=== PATIENT | female | born 1930 | race Caucasian/White ===

== ENCOUNTER 2017-05-04 18:16 | Inpatient (IN) | payer MEDICARE, MEDICAID ==
[2017-05-04 19:08] LABS: MEAN CORPUSCULAR HEMOGLOBIN 19.8 pg (27.0-31.0); MEAN CORPUSCULAR HGB CONC 31.1 pg (28.0-36.0); NEUTROPHILE ABSOLUTE 1.4 Th/cmm (1.8-8.0); PLATELET COUNT 193 Th/cmm (150-400); RED CELL DISTRIBUTION WIDTH 21.4 % (11.5-20.0)
[2017-05-04 19:15] LABS: INR 1.04 (0.5-1.4); PROTHROMBIN TIME (TEST) 10.8 SECONDS (9.5-11.5)
[2017-05-04 19:17] LABS: CHOLESTEROL 95 mg/dL (<200); TRIGLYCERIDES 90 mg/dL (<150)
[2017-05-04 19:19] LABS: ALB/GLOB RATIO 1.1 (1.0-1.8); ALKALINE PHOSPHATASE 106 U/L (34-104); ANION GAP 6.2 (7.0-16.0); BILIRUBIN,TOTAL 0.3 mg/dL (0.3-1.0); BUN - UREA NITROGEN 37 mg/dL (7-25); BUN/CREATININE RATIO 46.3; CALCIUM SERUM 10.5 mg/dL (8.6-10.3); CHLORIDE 107 mEq/L (98-107); CREATININE - SERUM 0.8 mg/dL (0.6-1.2); GLUCOSE 149 mg/dL (70-105); POTASSIUM SERUM 4.2 mEq/L (3.5-5.1); SGOT 18 U/L (13-39); SGPT/ALT 14 U/L (7-52); SODIUM SERUM 133 mEq/L (136-145)
[2017-05-04 19:21] LABS: WHITE BLOOD COUNT 2.8 Th/cmm (4.8-10.8)
[2017-05-04 19:22] LABS: HEMATOCRIT 16.9 % (35.0-45.0); HEMOGLOBIN 5.3 gm/dL (11.7-16.1)
[2017-05-04 19:29] LABS: MEAN CELL VOLUME 63.7 fl (81-100); RED BLOOD COUNT 2.65 Mil/cmm (3.80-5.20)
--- NOTE | 2017-05-04 19:45 | ED Physician Chart ---
Chief Complaint/HPI - Patient Information Date Seen:: 05/04/17 Time Seen:: 18:30 Chief Complaint:: ABNORMAL LABS History of Present Illness:: THIS IS AN 86 YO FEMALE WHO WAS SENT HERE FOR AN EVALUATION AND TREATMENT FOR A LOW BLOOD COUNT. SHE IS CHRONICALLY ILL WITH COPD,ANEMIA,HYPERTENSION,THYROID DISEASE,GERD CAD, DIABETES MELLITUS AND ANXIETY DISORDER. Allergies:: Allergies Allergy/AdvReac Type Severity Reaction Status Date / Time No Known Allergies Allergy Verified 05/04/17 18:25 Vitals:: Vital Signs - 8 hr 05/04/17 18:25 Temp 98.1 F HR 77 RR 16 BP 126/52 O2 Sat % 98 Historian:: Medical Records Review:: Nurse's Note Reviewed, Transfer documents Reviewed Review of Systems - Review of Systems General/Constitutional: No fever, No chills, No weight loss, No weakness, No diaphoresis, No edema, No loss of appetite, Other (THIS PATIENT IS UNABLE TO GIVE A REVIEW OF SYSTEMS.) Skin: No skin lesions, No rash, No bruising Head: No headache, No light-headedness Eyes: No loss of vision, No pain, No diplopia ENT: No earache, No nasal drainage, No sore throat, No tinnitus Neck: No neck pain, No swelling, No thyromegaly, No stiffness, No mass noted Cardio Vascular: No chest pain, No palpitations, No PND, No orthopnea, No edema Pulmonary: No SOB, No cough, No sputum, No wheezing GI: No nausea, No vomiting, No diarrhea, No pain, No melena, No hematochezia, No constipation, No hematemesis G/U: No dysuria, No frequency, No hematuria Musculoskeletal: No bone or joint pain, No back pain, No muscle pain Endocrine: No polyuria, No polydipsia Psychiatric: No prior psych history, No depression, No anxiety, No suicidal ideation Hematopoietic: No bruising, No lymphadenopathy Allergic/Immuno: No urticaria, No angioedema Neurological: No syncope, No focal symptoms, No weakness, No paresthesia, No headache, No seizure, No dizziness, No confusion, No vertigo Past Medical History - Past Medical History Obtainable: Yes Past Medical History: HTN, DM, CAD, Dyslipidemia, Thyroid disorder, Dementia Social History: Non Smoker, No Alcohol, No Drug Use, Care Facility Surgical History: None Physical Exam - Physical Examination General/Constitutional: Awake, Well-developed, well-nourished, Alert, No distress, GCS 15, Non-toxic appearing, Ambulatory Other Gen/Cons comments:: PALE AND WEAK Head: Atraumatic Eyes: Lids, conjuctiva normal, PERRL, EOMI Skin: Nl inspection, No rash, No skin lesions, No ecchymosis, Well hydrated, No lymphadenopathy ENMT: External ears, nose nl, Nasal exam nl, Lips, teeth, gums nl Neck: Nontender, Full ROM w/o pain, No JVD, No nuchal rigidity, No bruit, No mass, No stridor Respiratory: Nl effort/Exclusion, Clear to Auscultation, No Wheeze/Rhonchi/Rales Cardio Vascular: RRR, No murmur, gallop, rubs, NL S1 S2 GI: No tenderness/rebounding/guarding, No organomegaly, No hernia, Normal BS's, Nondistended, No mass/bruits, No McBurney tenderness : No CVA tenderness Extremities: Full ROM, normal strength in all extremities, No edema, Normal digits & nails Other Extremities comments:: BOTH KNEES ARE TENDER AND PAINFUL ON MOVEMENT. Neuro/Psych: Alert/oriented, DTR's symmetric, Normal sensory exam, Normal motor strength, Judgement/insight normal, Mood normal, Normal gait, No focal deficits Misc: normal gait, Normal back, No paraspinal tenderness Labs/Radiology/EKG Results - Lab Results Results: Laboratory Tests 05/04/17 05/04/17 05/04/17 18:54 18:54 18:54 WBC 2.8 L RBC 2.65 L Hgb 5.3 L* Hct 16.9 L* MCV 63.7 L MCH 19.8 L MCHC Differential 31.1 RDW 21.4 H Plt Count 193 MPV 7.0 PT 10.8 INR 1.04 PTT (Actin FS) 21.2 L Sodium Potassium Chloride Carbon Dioxide Anion Gap BUN Creatinine Est GFR ( Amer) Est GFR (Non-Af Amer) BUN/Creatinine Ratio Glucose Whole Bld Lactic Acid Calcium Total Bilirubin AST ALT Alkaline Phosphatase Troponin I Total Protein Albumin Globulin Albumin/Globulin Ratio Triglycerides 90 Cholesterol 95 LDL Cholesterol Direct 43 L HDL Cholesterol 36 05/04/17 05/04/17 05/04/17 18:54 18:54 18:54 WBC RBC Hgb Hct MCV MCH MCHC Differential RDW Plt Count MPV PT INR PTT (Actin FS) Sodium 133 L Potassium 4.2 Chloride 107 Carbon Dioxide 24.0 Anion Gap 6.2 L BUN 37 H Creatinine 0.8 Est GFR ( Amer) TNP Est GFR (Non-Af Amer) TNP BUN/Creatinine Ratio 46.3 Glucose 149 H Whole Bld Lactic Acid 1.18 Calcium 10.5 H Total Bilirubin 0.3 AST 18 ALT 14 Alkaline Phosphatase 106 H Troponin I 0.03 Total Protein 6.6 Albumin 3.4 L Globulin 3.2 Albumin/Globulin Ratio 1.1 Triglycerides Cholesterol LDL Cholesterol Direct HDL Cholesterol Abnormal Lab Results 05/04/17 05/04/17 05/04/17 18:54 18:54 18:54 WBC 2.8 L RBC 2.65 L Hgb 5.3 L* Hct 16.9 L* MCV 63.7 L MCH 19.8 L MCHC Differential 31.1 RDW 21.4 H Plt Count 193 MPV 7.0 Neutrophils (Manual) 54 Lymphocytes 26 Monocytes 14 H Eosinophils 4 Basophils 2 Hypochromia 1+ Platelet Estimate ADEQUATE Polychromasia 2+ Anisocytosis 1+ Microcytosis 3+ RBC Morph Micro Appear ABNORMAL PT 10.8 INR 1.04 PTT (Actin FS) 21.2 L Sodium Potassium Chloride Carbon Dioxide Anion Gap BUN Creatinine Est GFR ( Amer) Est GFR (Non-Af Amer) BUN/Creatinine Ratio Glucose Whole Bld Lactic Acid Calcium Total Bilirubin AST ALT Alkaline Phosphatase Troponin I Total Protein Albumin Globulin Albumin/Globulin Ratio Triglycerides 90 Cholesterol 95 LDL Cholesterol Direct 43 L HDL Cholesterol 36 TSH Urine Source Urine Color Urine Clarity Urine pH Ur Specific [place] Urine Protein Urine Glucose (UA) Urine Ketones Urine Blood Urine Nitrate Urine Bilirubin Urine Urobilinogen Ur Leukocyte Esterase Urine RBC Urine WBC Ur Epithelial Cells Urine Bacteria Blood Type Antibody Screen 05/04/17 05/04/17 05/04/17 18:54 18:54 18:54 WBC RBC Hgb Hct MCV MCH MCHC Differential RDW Plt Count MPV Neutrophils (Manual) Lymphocytes Monocytes Eosinophils Basophils Hypochromia Platelet Estimate Polychromasia Anisocytosis Microcytosis RBC Morph Micro Appear PT INR PTT (Actin FS) Sodium 133 L Potassium 4.2 Chloride 107 Carbon Dioxide 24.0 Anion Gap 6.2 L BUN 37 H Creatinine 0.8 Est GFR ( Amer) TNP Est GFR (Non-Af Amer) TNP BUN/Creatinine Ratio 46.3 Glucose 149 H Whole Bld Lactic Acid Calcium 10.5 H Total Bilirubin 0.3 AST 18 ALT 14 Alkaline Phosphatase 106 H Troponin I 0.03 Total Protein 6.6 Albumin 3.4 L Globulin 3.2 Albumin/Globulin Ratio 1.1 Triglycerides Cholesterol LDL Cholesterol Direct HDL Cholesterol TSH 7.76 H Urine Source Urine Color Urine Clarity Urine pH Ur Specific [place] Urine Protein Urine Glucose (UA) Urine Ketones Urine Blood Urine Nitrate Urine Bilirubin Urine Urobilinogen Ur Leukocyte Esterase Urine RBC Urine WBC Ur Epithelial Cells Urine Bacteria Blood Type Antibody Screen 05/04/17 05/04/17 05/04/17 18:54 19:35 20:50 WBC RBC Hgb Hct MCV MCH MCHC Differential RDW Plt Count MPV Neutrophils (Manual) Lymphocytes Monocytes Eosinophils Basophils Hypochromia Platelet Estimate Polychromasia Anisocytosis Microcytosis RBC Morph Micro Appear PT INR PTT (Actin FS) Sodium Potassium Chloride Carbon Dioxide Anion Gap BUN Creatinine Est GFR ( Amer) Est GFR (Non-Af Amer) BUN/Creatinine Ratio Glucose Whole Bld Lactic Acid 1.18 Calcium Total Bilirubin AST ALT Alkaline Phosphatase Troponin I Total Protein Albumin Globulin Albumin/Globulin Ratio Triglycerides Cholesterol LDL Cholesterol Direct HDL Cholesterol TSH Urine Source CLEAN C Urine Color YELLOW Urine Clarity CLEAR Urine pH 6.0 Ur Specific [place] 1.020 Urine Protein TRACE Urine Glucose (UA) NEGATIVE Urine Ketones NEGATIVE Urine Blood NEGATIVE Urine Nitrate NEGATIVE Urine Bilirubin NEGATIVE Urine Urobilinogen 1.0 Ur Leukocyte Esterase NEGATIVE Urine RBC NONE SEEN Urine WBC 0-2 Ur Epithelial Cells RARE Urine Bacteria OCCASIONAL Blood Type A POSITIVE Antibody Screen NEGATIVE - EKG Interpretations EKG Time:: 20:27 Rate & Rhythm: RATE=77 SINUS [place]: LEFT AXIS Assessment - Assessment General Assessment: SEVERE ANEMIA ED Septic Shock - . Is Septic Shock (SBP<90, OR Lactate>4 mmol\L) present?: No - <6hrs of presentation: Vital Signs: Vital Signs - 8 hr 05/04/17 18:25 Temp 98.1 F HR 77 RR 16 BP 126/52 O2 Sat % 98 Reassessment (Disposition) - Reassessment Reassessment Condition:: Unchanged - Diagnosis Diagnosis:: SEVERE ANEMIA - Patient Disposition Discharge/Transfer:: Acute Care w/in this hosp Admitted to:: Telemetry Admitting Medical Physician:: Jaden Keen Condition at Disposition:: Critical ED Discharge Plan - Patient Disposition Admit/Discharge/Transfer: Acute Care w/in this hosp Condition at Disposition: Critical
[2017-05-04 19:50] LABS: BASOPHIL 2 % (0-3); EOSINOPHIL 4 % (0-5); NEUTROPHILS 54 % (40-80); TOTAL CELLS COUNTED 100
[2017-05-04 19:51] LABS: ANISOCYTOSIS 1+; HYPOCHROMIA 1+; MICROCYTOSIS 3+; PLATELET ESTIMATE ADEQUATE (NORMAL); POLYCHROMASIA 2+
[2017-05-04] MEDS ORDERED: Sodium Chloride 0.9% 1,000 ML IV ONE (20:02)
[2017-05-04 21:06] LABS: URINE BILIRUBIN NEGATIVE (NEGATIVE); URINE BLOOD NEGATIVE (NEGATIVE); URINE GLUCOSE (UA) NEGATIVE (NEGATIVE); URINE KETONE NEGATIVE (NEGATIVE); URINE PROTEIN TRACE mg/dL (NEGATIVE)
[2017-05-04 21:20] LABS: URINE COLOR YELLOW
[2017-05-04 21:22] LABS: URINE BACTERIA OCCASIONAL /hpf (NONE SEEN); URINE EPITHELIAL CELLS RARE /lpf (FEW); URINE RBC NONE SEEN /hpf (0-5); URINE WBC 0-2 /hpf (0-5)
[2017-05-04] MEDS ORDERED: D5-0.45NS 1,000 ML IV SCH (23:05)
[2017-05-05 06:35] LABS: MEAN CORPUSCULAR HEMOGLOBIN 21.8 pg (27.0-31.0); MEAN CORPUSCULAR HGB CONC 31.7 pg (28.0-36.0); MEAN PLATELET VOLUME 7.2 fl; NEUTROPHILE ABSOLUTE 1.6 Th/cmm (1.8-8.0); PLATELET COUNT 199 Th/cmm (150-400); RED BLOOD COUNT 3.41 Mil/cmm (3.80-5.20); RED CELL DISTRIBUTION WIDTH 23.7 % (11.5-20.0)
[2017-05-05] MEDS: Levothyroxine 0.125 Mg Tab PO SCH (06:39)
[2017-05-05 07:02] LABS: WHITE BLOOD COUNT 3.1 Th/cmm (4.8-10.8)
[2017-05-05 07:03] LABS: HEMOGLOBIN 7.4 gm/dL (11.7-16.1)
[2017-05-05 07:05] LABS: HEMATOCRIT 23.4 % (35.0-45.0)
[2017-05-05 07:39] LABS: HEMOGLOBIN 8.3 gm/dL (11.7-16.1); MEAN CORPUSCULAR HEMOGLOBIN 21.9 pg (27.0-31.0)
[2017-05-05 07:40] LABS: % BASOPHILS 0.8 % (0.0-2.0); % EOSINOPHILS 3.6 % (0.0-5.0); % LYMPHOCYTES 34.4 % (20.0-50.0); % NEUTROPHILS 47.2 % (40.0-80.0); HEMATOCRIT 26.1 % (35.0-45.0); MEAN CELL VOLUME 69.3 fl (81-100); MEAN CORPUSCULAR HGB CONC 31.7 pg (28.0-36.0); MEAN PLATELET VOLUME 7.1 fl; NEUTROPHILE ABSOLUTE 1.8 Th/cmm (1.8-8.0); PLATELET COUNT 220 Th/cmm (150-400); RED BLOOD COUNT 3.76 Mil/cmm (3.80-5.20); RED CELL DISTRIBUTION WIDTH 23.6 % (11.5-20.0); WHITE BLOOD COUNT 3.7 Th/cmm (4.8-10.8)
[2017-05-05] MEDS: D5-0.45NS 1,000 ML IV SCH (07:55)
[2017-05-05] MEDS: Pantoprazole 40 mg EC Tab PO SCH (09:11)
[2017-05-05] MEDS: Ferrous Sulfate 325 MG TAB PO SCH ×3 (09:11→20:17)
--- NOTE | 2017-05-05 09:23 | Diagnostic Imaging Report ---
Portable chest x-ray Time: 2324 History: Shortness of breath Allowing for portable technique the heart size is normal. No focal pulmonary parenchymal processes. No hilar or mediastinal abnormalities. Aortic arch calcified. Degenerative changes shoulder joints appreciated. Impression: No acute abnormalities.
[2017-05-05 10:38] LABS: MEAN CELL VOLUME 68.7 fl (81-100)
[2017-05-05 12:06] LABS: HEMATOCRIT 26.4 % (35.0-45.0); HEMOGLOBIN 8.4 gm/dL (11.7-16.1); MEAN CELL VOLUME 69.2 fl (81-100); MEAN CORPUSCULAR HEMOGLOBIN 22.1 pg (27.0-31.0); MEAN CORPUSCULAR HGB CONC 31.8 pg (28.0-36.0); MEAN PLATELET VOLUME 6.8 fl; PLATELET COUNT 208 Th/cmm (150-400); RED BLOOD COUNT 3.81 Mil/cmm (3.80-5.20); RED CELL DISTRIBUTION WIDTH 23.9 % (11.5-20.0); WHITE BLOOD COUNT 4.1 Th/cmm (4.8-10.8)
[2017-05-05 12:29] LABS: EOSINOPHIL 3 % (0-5); NEUTROPHILS 62 % (40-80); TOTAL CELLS COUNTED 100
[2017-05-05 12:30] LABS: ANISOCYTOSIS 2+; MICROCYTOSIS 3+; PLATELET ESTIMATE ADEQUATE (NORMAL); POLYCHROMASIA 1+
--- NOTE | 2017-05-05 16:04 | History & Physical ---
ADMIT DATE: 05/05/2017 CHIEF COMPLAINT: Anemia. HISTORY OF PRESENT ILLNESS: This is an 86-year-old female with past medical history significant for chronic anemia and psychiatric disorder, presents from long-term after being noted to have worsening anemia. The patient was brought to the Emergency Room, found to have a hemoglobin of 5.3. The patient was admitted and had transfusion of 2 units of packed red blood cells with good result. The patient is seen in hospital bed. She is awake and alert. Very poor historian given her underlying mental disorder, appears in no acute distress. PAST MEDICAL HISTORY: The patient has history of chronic anemia, pancytopenia, psychosis, hypothyroidism, gastroesophageal reflux disorder, chronic kidney disease, diabetes, hypertension, COPD. MEDICATIONS: As per reconciliation. ALLERGIES: No known drug allergies. SOCIAL HISTORY: No known tobacco, alcohol or illicit drug use. The patient is a resident of [facility]. FAMILY HISTORY: Noncontributory. REVIEW OF SYSTEMS: IMMUNOLOGIC: No recurrent infection. CARDIOVASCULAR: No heart disease. The patient does have hypertension. GASTROINTESTINAL: No nausea, vomiting, diarrhea. ENDOCRINE: The patient is apparently diabetic and has hypothyroidism. HEMATOLOGIC: No bleeding or clotting disorder. The patient has chronic anemia. NEUROLOGIC: No seizure or stroke. The patient has poor mental ____ secondary to possible psychiatric disorder versus dementia. PHYSICAL EXAMINATION: GENERAL: The patient is awake, alert, in no acute distress. VITAL SIGNS: Temperature 97.3, pulse 64, respiration 18, blood pressure 142/59. HEENT: Pupils are equally round. Anicteric sclerae. NECK: Supple, no JVD, mass or bruit. LUNGS: Clear to auscultation. HEART: S1, S2, regular rate and rhythm. ABDOMEN: Soft and nontender. Positive bowel sounds. EXTREMITIES: No cyanosis, clubbing or edema. NEUROLOGIC: Cranial nerves 2-12 intact and ____ have any motor deficit, although she is generally weak and has poor coordination and not cooperative. LABORATORY DATA: On admission, hemoglobin is 5.3, hematocrit is 16.9, WBC is 2.8 with platelets of 193. Albumin is 3.4. BUN is 37, creatinine is 0.8. Sodium is 133. IMPRESSION: 1. Acute on chronic anemia. 2. Possible dementia. 3. History of psychiatric disorder. 4. Hypothyroidism. 5. Hyponatremia. 6. Gastroesophageal reflux disorder. 7. Mild malnutrition. PLAN: Admit to telemetry. The patient has been transfused packed red blood cells. I will continue to monitor the patient's hemoglobin for further need for transfusion. The patient will receive GI consult as well as Hematology consult. I spoke with Dr. Araya, who assessed her in the long-term. JOB# [id number]
[2017-05-05 20:04] LABS: MEAN CORPUSCULAR HEMOGLOBIN 21.7 pg (27.0-31.0); MEAN CORPUSCULAR HGB CONC 31.2 pg (28.0-36.0); MEAN PLATELET VOLUME 6.9 fl; NEUTROPHILE ABSOLUTE 2.5 Th/cmm (1.8-8.0); PLATELET COUNT 216 Th/cmm (150-400); RED CELL DISTRIBUTION WIDTH 24.2 % (11.5-20.0); WHITE BLOOD COUNT 4.3 Th/cmm (4.8-10.8)
[2017-05-05 20:19] LABS: HEMOGLOBIN 7.8 gm/dL (11.7-16.1); MEAN CELL VOLUME 69.6 fl (81-100)
[2017-05-05 20:31] LABS: ANISOCYTOSIS 2+; EOSINOPHIL 4 % (0-5); MICROCYTOSIS 3+; NEUTROPHILS 62 % (40-80); POLYCHROMASIA 1+; TOTAL CELLS COUNTED 100
[2017-05-05 20:32] LABS: PLATELET ESTIMATE ADEQUATE (NORMAL)
--- NOTE | 2017-05-05 23:25 | Admit Criteria Form ---
Admit Criteria Forms - Admit Criteria Diagnosis: ANEMIA, IRON DEFICIENCY OR UNSPECIFIED Clinical Indications for Inpatient Care (Place 'X' for any and all applicable criteria): Admission is indicated for ANY ONE of the following(1)(2)(3)(4)(5)(6)(7): [X] I. Inpatient admission required rather than observation care (Also use Anemia, Iron Deficiency or Unspecified: Observation Care guideline as appropriate) because of ANY ONE of the following: [] a) Hemodynamic instability that is severe or persistent [] b) Active bleeding that cannot be rapidly controlled [] c) CVS symptoms (i.e., dyspnea, chest pain, heart failure) that are severe or persistent [] d) Neurologic symptoms (i.e., cognitive impairment, recurrent syncope or near syncope) that are severe or persistent [] e) Cardiac arrhythmias of immediate concern [] f) Acute peripheral ischemia (e.g., pulseless, cool, mottled, or cyanotic extremity) [] g) High-risk low platelet count [] h) Acute renal failure [] i) Ongoing transfusion for blood loss (greater than 2 units) [] j) IV fluid to replace significant ongoing (eg, >24 hours) losses (> 3 L/m2 per day) [] k) Pulmonary artery catheter monitoring [] l) Supplemental oxygen or respiratory treatments for over 24 hours that are performable only in acute inpatient setting [] m) Immediate inpatient surgery [X] n) Other condition, treatment or monitoring requiring inpatient admission [] II Active massive hemorrhage [] III. Active hemolysis with rapidly progressive anemia [A](6) Extended stay beyond goal length of stay may be needed for (17)(18) []a) Diagnosed cause of anemia requiring longer hospitalization (eg, active GI bleeding, immune hemolysis requiring electrophoresis, complications of malignancy requiring acute care []b) Continued emergent anemia indicators (23) []c) Transfusion reactions []d) Associated leukopenia or thrombocytopenia needing inpatient care []e) Active comorbidities (eg, renal failure, heart failure) The original [employer] content created by [employer] has been revised. The portions of the content which have been revised are identified through the use of italic text or in bold. [employer] has neither reviewed nor approved the modified material. All other unmodified content is copyright [employer]. Please see references footnoted in the original [facility] edition 2016 Admit Criteria Met?: Yes
[2017-05-06] MEDS: Levothyroxine 0.125 Mg Tab PO SCH (06:38)
[2017-05-06 07:54] LABS: % EOSINOPHILS 3.5 % (0.0-5.0); % MONOCYTES 14.6 % (2.0-10.0); % NEUTROPHILS 55.9 % (40.0-80.0); MEAN CELL VOLUME 73.3 fl (81-100); MEAN CORPUSCULAR HGB CONC 32.8 pg (28.0-36.0); MEAN PLATELET VOLUME 7.3 fl; NEUTROPHILE ABSOLUTE 2.3 Th/cmm (1.8-8.0); PLATELET COUNT 190 Th/cmm (150-400); RED BLOOD COUNT 4.37 Mil/cmm (3.80-5.20); RED CELL DISTRIBUTION WIDTH 24.9 % (11.5-20.0)
[2017-05-06 08:00] LABS: HEMOGLOBIN 10.5 gm/dL (11.7-16.1)
[2017-05-06 08:14] LABS: ALKALINE PHOSPHATASE 108 U/L (34-104); ANION GAP 5.6 (7.0-16.0); BILIRUBIN,TOTAL 0.5 mg/dL (0.3-1.0); BUN - UREA NITROGEN 20 mg/dL (7-25); BUN/CREATININE RATIO 33.3; CALCIUM SERUM 10.5 mg/dL (8.6-10.3); CARBON DIOXIDE 26.5 mEq/L (21.0-31.0); CHLORIDE 107 mEq/L (98-107); CREATININE - SERUM 0.6 mg/dL (0.6-1.2); GLUCOSE 107 mg/dL (70-105); POTASSIUM SERUM 4.1 mEq/L (3.5-5.1); SGOT 20 U/L (13-39); SGPT/ALT 13 U/L (7-52); SODIUM SERUM 135 mEq/L (136-145)
[2017-05-06] MEDS: Ferrous Sulfate 325 MG TAB PO SCH ×3 (08:18→21:46)
[2017-05-06] MEDS: Pantoprazole 40 mg EC Tab PO SCH (08:18)
[2017-05-06] MEDS ORDERED: Magnesium Hydroxide (MOM) 30 mL UDC PO PRN (09:02)
[2017-05-06] MEDS ORDERED: Magnesium Citrate 1.75 GM/300 mL Bottle PO ONE (09:52)
--- NOTE | 2017-05-06 11:35 | Consultation ---
DATE OF CONSULTATION: 05/06/2017 TYPE OF CONSULTATION: GASTROENTEROLOGY REQUESTING PHYSICIAN: Dr. Jaden Keen. REASON FOR CONSULTATION: Anemia. HISTORY OF PRESENT ILLNESS: This is an 86-year-old female transferred from assisted for severe anemia requiring blood transfusions. Her hemoglobin on admission was 5.3. She received 4 units of packed RBCs. There is no overt GI bleeding. The patient is a poor historian. She cannot recall previous endoscopy or colonoscopy. She denies abdominal pain, nausea, vomiting, diarrhea or constipation. PAST MEDICAL HISTORY: Notable for psychosis, dementia, hypothyroidism, GERD, chronic kidney disease, diabetes mellitus, hypertension, and COPD. ALLERGIES: No known drug allergies. SOCIAL HISTORY: Resident of [facility]. No known tobacco, alcohol or drugs. FAMILY HISTORY: Noncontributory. REVIEW OF SYSTEMS: A comprehensive 12-point review of system was conducted and is only present for those signs and symptoms present in the history of present illness. MEDICATIONS: Here are iron, folic acid, Synthroid, milk of magnesia, Protonix and Carafate. PHYSICAL EXAMINATION: VITAL SIGNS: Temperature of 97.7, blood pressure is 133/55, pulse of 81, respirations 18, O2 sat is 99%. GENERAL: The patient is well-developed elderly female in no acute distress. HEENT: Sclerae nonicteric. Oropharynx is clear. CARDIOVASCULAR: Regular rate and rhythm. LUNGS: Clear to auscultation bilaterally. ABDOMEN: Soft, nontender, nondistended. EXTREMITIES: No clubbing, cyanosis or edema. RECTAL: Deferred. LABORATORY DATA AND IMAGING: WBC is 3.7, hemoglobin 8.3, MCV 69, platelet count 220. Sodium 135. Creatinine is 0.6, liver enzymes are normal except for alkaline phosphatase mildly elevated to 108. Urinalysis is negative. IMPRESSION: 1. Severe microcytic anemia requiring blood transfusion with no overt GI bleeding could be from slow GI blood loss from esophagitis, gastritis, peptic ulcer disease, occult neoplasm, angiodysplasia, hemorrhoids, etc. unclear whether the patient has had previous endoscopic workup. 2. Dementia and psychosis. 3. Leukopenia. 4. Hypothyroidism. 5. Gastroesophageal reflux disease. 6. Diabetes mellitus. 7. Hypertension. 8. Chronic obstructive pulmonary disease. RECOMMENDATIONS: 1. Check anemia labs. 2. Monitor hemoglobin, transfuse as necessary. 3. Consider upper endoscopy and colonoscopy, pending consent likely from her sister. 4. Workup can also be done as an outpatient, if so desired. Thank you, Dr. Jaden Keen for involving us in the care of your patient. If you have any further questions, please call us. JOB# [id number]
[2017-05-06] MEDS: D5-0.45NS 1,000 ML IV SCH (12:50)
[2017-05-06] MEDS ORDERED: Magnesium Hydroxide (MOM) 30 mL UDC PO SCH (17:00)
--- NOTE | 2017-05-06 17:17 | General Progress Note ---
Subjective - Review of Systems Subjective: resting comfortably poor historian Objective - Results Result Diagrams: 05/06/17 07:20 05/06/17 07:20 Recent Labs: Laboratory Last Values WBC 4.0 Th/cmm (4.8-10.8) L 05/06/17 07:20 RBC 4.37 Mil/cmm (3.80-5.20) 05/06/17 07:20 Hgb 10.5 gm/dL (11.7-16.1) L D 05/06/17 07:20 Hct 32.0 % (35.0-45.0) L D 05/06/17 07:20 MCV 73.3 fl (81-100) L 05/06/17 07:20 MCH 24.0 pg (27.0-31.0) L 05/06/17 07:20 MCHC Differential 32.8 pg (28.0-36.0) 05/06/17 07:20 RDW 24.9 % (11.5-20.0) H 05/06/17 07:20 Plt Count 190 Th/cmm (150-400) 05/06/17 07:20 MPV 7.3 fl 05/06/17 07:20 Neutrophils % 55.9 % (40.0-80.0) 05/06/17 07:20 Lymphocytes % 26.0 % (20.0-50.0) 05/06/17 07:20 Monocytes % 14.6 % (2.0-10.0) H 05/06/17 07:20 Eosinophils % 3.5 % (0.0-5.0) 05/06/17 07:20 Basophils % 0.0 % (0.0-2.0) 05/06/17 07:20 Neutrophils (Manual) 62 % (40-80) 05/05/17 19:57 Lymphocytes 25 % (20-50) 05/05/17 19:57 Monocytes 9 % (2-10) 05/05/17 19:57 Eosinophils 4 % (0-5) 05/05/17 19:57 Basophils 2 % (0-3) 05/04/17 18:54 Hypochromia 1+ 05/04/17 18:54 Platelet Estimate ADEQUATE (NORMAL) 05/05/17 19:57 Polychromasia 1+ 05/05/17 19:57 Anisocytosis 2+ 05/05/17 19:57 Microcytosis 3+ 05/05/17 19:57 RBC Morph Micro Appear ABNORMAL (NORMAL) 05/05/17 19:57 PT 10.8 SECONDS (9.5-11.5) 05/04/17 18:54 INR 1.04 (0.5-1.4) 05/04/17 18:54 PTT (Actin FS) 21.2 SECONDS (26.0-38.0) L 05/04/17 18:54 Sodium 135 mEq/L (136-145) L 05/06/17 07:20 Potassium 4.1 mEq/L (3.5-5.1) 05/06/17 07:20 Chloride 107 mEq/L (98-107) 05/06/17 07:20 Carbon Dioxide 26.5 mEq/L (21.0-31.0) 05/06/17 07:20 Anion Gap 5.6 (7.0-16.0) L 05/06/17 07:20 BUN 20 mg/dL (7-25) 05/06/17 07:20 Creatinine 0.6 mg/dL (0.6-1.2) 05/06/17 07:20 Est GFR ( Amer) TNP 05/06/17 07:20 Est GFR (Non-Af Amer) TNP 05/06/17 07:20 BUN/Creatinine Ratio 33.3 05/06/17 07:20 Glucose 107 mg/dL (70-105) H 05/06/17 07:20 Whole Bld Lactic Acid 1.18 mmol/L (0.60-1.99) 05/04/17 18:54 Calcium 10.5 mg/dL (8.6-10.3) H 05/06/17 07:20 Total Bilirubin 0.5 mg/dL (0.3-1.0) 05/06/17 07:20 AST 20 U/L (13-39) 05/06/17 07:20 ALT 13 U/L (7-52) 05/06/17 07:20 Alkaline Phosphatase 108 U/L (34-104) H 05/06/17 07:20 Troponin I 0.03 ng/mL (0.01-0.05) 05/04/17 18:54 B-Natriuretic Peptide 36.5 pg/mL (5.0-100.0) 05/06/17 07:20 Total Protein 6.7 gm/dL (6.0-8.3) 05/06/17 07:20 Albumin 3.4 gm/dL (3.7-5.3) L 05/06/17 07:20 Globulin 3.3 gm/dL 05/06/17 07:20 Albumin/Globulin Ratio 1.0 (1.0-1.8) 05/06/17 07:20 Triglycerides 90 mg/dL (<150) 05/04/17 18:54 Cholesterol 95 mg/dL (<200) 05/04/17 18:54 LDL Cholesterol Direct 43 mg/dL (75-193) L 05/04/17 18:54 HDL Cholesterol 36 mg/dL (23-92) 05/04/17 18:54 TSH 7.76 uIU/ml (0.34-5.60) H 05/04/17 18:54 Urine Source CLEAN C 05/04/17 20:50 Urine Color YELLOW 05/04/17 20:50 Urine Clarity CLEAR (CLEAR) 05/04/17 20:50 Urine pH 6.0 (4.6 - 8.0) 05/04/17 20:50 Ur Specific [place] 1.020 (1.005-1.030) 05/04/17 20:50 Urine Protein TRACE mg/dL (NEGATIVE) 05/04/17 20:50 Urine Glucose (UA) NEGATIVE mg/dL (NEGATIVE) 05/04/17 20:50 Urine Ketones NEGATIVE mg/dL (NEGATIVE) 05/04/17 20:50 Urine Blood NEGATIVE (NEGATIVE) 05/04/17 20:50 Urine Nitrate NEGATIVE (NEGATIVE) 05/04/17 20:50 Urine Bilirubin NEGATIVE (NEGATIVE) 05/04/17 20:50 Urine Urobilinogen 1.0 E.U./dL (0.2 - 1.0) 05/04/17 20:50 Ur Leukocyte Esterase NEGATIVE (NEGATIVE) 05/04/17 20:50 Urine RBC NONE SEEN /hpf (0-5) 05/04/17 20:50 Urine WBC 0-2 /hpf (0-5) 05/04/17 20:50 Ur Epithelial Cells RARE /lpf (FEW) 05/04/17 20:50 Urine Bacteria OCCASIONAL /hpf (NONE SEEN) 05/04/17 20:50 Stool Occult Blood POSITIVE (NEGATIVE) 05/06/17 14:00 RPR NONREACTIVE (NONREACTIVE) 05/04/17 18:54 Blood Type A POSITIVE 05/04/17 19:35 Antibody Screen NEGATIVE 05/04/17 19:35 - Physical Exam Vitals and I&O: Vital Signs Temp 97.4 F 05/06/17 16:25 Pulse 74 05/06/17 16:25 Resp 19 05/06/17 16:25 BP 131/51 05/06/17 16:25 Pulse Ox 98 05/06/17 16:25 Intake & Output 05/05/17 05/06/17 05/06/17 18:59 06:59 18:59 Intake Total 3250 Balance 3250 Weight (lbs) 75.75 kg Intake: Intake, IV Amount 1000 D5-0.45NS 1,000 ml @ 50 1000 mls/hr IV .Q20H [facility] Rx#: [id number] Oral 1750 Blood Product 500 Other: # Voids 6 # Bowel Movements 0 Active Medications: Current Medications Ferrous Sulfate (Iron) 325 mg PO TID [facility] Stop: 07/04/17 08:59 Last Admin: 05/06/17 13:00 Dose: 325 mg Folic Acid (Folate) 1 mg PO DAILY [facility] Stop: 07/04/17 08:59 Last Admin: 05/06/17 08:18 Dose: 1 mg Dextrose/Sodium Chloride (D5-0.45ns) 1,000 mls @ 50 mls/hr IV .Q20H [facility] Stop: 07/03/17 23:04 Last Admin: 05/06/17 12:50 Dose: 50 mls/hr Levothyroxine Sodium (Synthroid) 0.125 mg PO QDAC [facility] Stop: 07/04/17 07:29 Last Admin: 05/06/17 06:38 Dose: 0.125 mg Magnesium Hydroxide (Milk Of Magnesia) 30 ml PO BID PRN PRN Reason: Constipation Stop: 07/05/17 16:59 Last Admin: 05/06/17 09:41 Dose: 30 ml Pantoprazole Sodium (Protonix) 40 mg PO DAILY [facility] Stop: 07/04/17 08:59 Last Admin: 05/06/17 08:18 Dose: 40 mg Sucralfate (Carafate) 1 gm PO ACHS [facility] Stop: 07/04/17 07:29 Last Admin: 05/06/17 17:01 Dose: 1 gm General: No acute distress HEENT: PERRLA, EOMI Neck: Supple Cardiovascular: Regular rate, Normal S1, Normal S2 Lungs: Clear to auscultation Abdomen: Bowel sounds, Soft, Tender Neurological: Normal gait Assessment/Plan - Problem List Patient Problems: All Active Problems HEMOGLOBIN VALUE PER RECENT LABS (6.2) (Acute) - Assessment Assessment: anemia dementia hypothyroid - Plan Plan: cont current treatment
[2017-05-07 06:30] LABS: HEMOGLOBIN 11.4 gm/dL (11.7-16.1); MEAN CELL VOLUME 73.7 fl (81-100); MEAN CORPUSCULAR HEMOGLOBIN 23.2 pg (27.0-31.0); MEAN CORPUSCULAR HGB CONC 31.5 pg (28.0-36.0); MEAN PLATELET VOLUME 7.3 fl; NEUTROPHILE ABSOLUTE 3.2 Th/cmm (1.8-8.0); PLATELET COUNT 201 Th/cmm (150-400); RED BLOOD COUNT 4.92 Mil/cmm (3.80-5.20); RED CELL DISTRIBUTION WIDTH 25.5 % (11.5-20.0)
[2017-05-07 06:39] LABS: HEMATOCRIT 36.3 % (35.0-45.0); WHITE BLOOD COUNT 5.1 Th/cmm (4.8-10.8)
[2017-05-07] MEDS: Levothyroxine 0.125 Mg Tab PO SCH (06:44)
[2017-05-07 06:45] LABS: INR 0.99 (0.5-1.4); PROTHROMBIN TIME (TEST) 10.3 SECONDS (9.5-11.5)
[2017-05-07 06:48] LABS: ALKALINE PHOSPHATASE 164 U/L (34-104); ANION GAP 7.5 (7.0-16.0); BILIRUBIN,TOTAL 0.5 mg/dL (0.3-1.0); BUN - UREA NITROGEN 17 mg/dL (7-25); BUN/CREATININE RATIO 28.3; CALCIUM SERUM 10.9 mg/dL (8.6-10.3); CARBON DIOXIDE 24.6 mEq/L (21.0-31.0); CHLORIDE 108 mEq/L (98-107); CREATININE - SERUM 0.6 mg/dL (0.6-1.2); GLUCOSE 110 mg/dL (70-105); POTASSIUM SERUM 4.1 mEq/L (3.5-5.1); SGOT 39 U/L (13-39); SGPT/ALT 25 U/L (7-52); SODIUM SERUM 136 mEq/L (136-145)
[2017-05-07] MEDS: Pantoprazole 40 mg EC Tab PO SCH (08:12)
[2017-05-07] MEDS: Ferrous Sulfate 325 MG TAB PO SCH ×3 (08:12→21:00)
[2017-05-07] MEDS: D5-0.45NS 1,000 ML IV SCH (10:20)
--- NOTE | 2017-05-07 12:57 | Operative Report ---
DATE OF SURGERY: 05/07/2017 PROCEDURES: 1. Esophagogastroduodenoscopy with control of bleeding. 2. Colonoscopy. PREOPERATIVE DIAGNOSES: GI bleed and iron deficiency anemia. POSTPROCEDURE DIAGNOSES: 1. 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 2. Colonoscopy showing fair bowel preparation; small hemorrhoids. INDICATIONS: An 86-year-old female admitted for severe iron deficiency anemia requiring blood transfusions. CONSENT: Informed consent was obtained from the patient's sister prior to procedure after explaining risks, benefits, alternatives including, but not limited to infection, perforation and . SEDATION: Monitored anesthesia care per Dr. Linder and Dr. Hewitt. DESCRIPTION OF PROCEDURE AND FINDINGS: The procedure took place as an inpatient in the GI suite of [facility] [place]. The patient was kept in a left lateral decubitus position. Adequate sedation was achieved. Initially, an upper endoscopy was performed followed by colonoscopy. An Olympus diagnostic upper endoscope was advanced from the patient's mouth and into the esophagus. The esophagus appeared normal with no evidence of esophagitis, stricture, or mass lesions. The Z line was normal appearing at 36 cm from the gums. Retroflexion in the stomach revealed no GE junction masses or varices. No hiatal hernia was identified. 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 There was a single large angioectasia in the duodenal bulb with an overlying small blood clot that was lavaged to clear. The second portion appeared normal. At this point, bipolar electrocautery was performed and the large AVM in the duodenal bulb was ablated. Using similar technique, ablation of the watermelon stomach change in the gastric antrum was also performed, but only limited treatment was able to be performed at the lateral lesion due to unavailability of argon plasma coagulation, which treats this lesion better. No obvious ulcers or mass lesions were identified. The scope was then withdrawn. The patient then repositioned and colonoscopy performed. Rectal examination revealed normal sphincter tone with no rectal masses. An Olympus colonoscope was advanced via the patient's anus and into the rectum with ease. It was advanced to the cecum, which was visualized by landmarks of the ileocecal valve and appendiceal orifice. The quality of preparation was fair with a copious amount of dark green liquid stool throughout the colon. Lesion less than 5 mm may have been missed. Only small internal hemorrhoids were identified. No diverticula or mass lesions or angioectasias were identified in the colon. The patient tolerated the procedure well, and no complications were anticipated. RECOMMENDATIONS: 1. Protonix and Carafate. 2. Iron supplementation. 3. We will check small bowel series to rule out small bowel lesion. 4. Will need outpatient upper endoscopy to continue cauterization of watermelon stomach change ideally with argon plasma coagulation. 5. Consider outpatient capsule endoscopy to also rule out other small bowel sources of bleeding such as other AVMs. Thank you Dr. Jaden Keen for involving us in the care of your patient. If you have any further questions, please call us. JOB# [id number] MTDD
--- NOTE | 2017-05-07 19:28 | Internal Medicine Prog Note ---
Internal Medicine Subjective - Subjective Service Date: 05/07/17 Patient seen and examined:: with staff Patient is:: awake, in bed, talking Patient Complaints of:: constipation Per staff patient has:: no adverse event Internal Medicine Objective - Results Result Diagrams: 05/07/17 06:10 05/07/17 06:10 Recent Labs: Laboratory Last Values WBC 5.1 Th/cmm (4.8-10.8) D 05/07/17 06:10 RBC 4.92 Mil/cmm (3.80-5.20) 05/07/17 06:10 Hgb 11.4 gm/dL (11.7-16.1) L 05/07/17 06:10 Hct 36.3 % (35.0-45.0) D 05/07/17 06:10 MCV 73.7 fl (81-100) L 05/07/17 06:10 MCH 23.2 pg (27.0-31.0) L 05/07/17 06:10 MCHC Differential 31.5 pg (28.0-36.0) 05/07/17 06:10 RDW 25.5 % (11.5-20.0) H 05/07/17 06:10 Plt Count 201 Th/cmm (150-400) 05/07/17 06:10 MPV 7.3 fl 05/07/17 06:10 Neutrophils % 55.9 % (40.0-80.0) 05/06/17 07:20 Lymphocytes % 26.0 % (20.0-50.0) 05/06/17 07:20 Monocytes % 14.6 % (2.0-10.0) H 05/06/17 07:20 Eosinophils % 3.5 % (0.0-5.0) 05/06/17 07:20 Basophils % 0.0 % (0.0-2.0) 05/06/17 07:20 Neutrophils (Manual) 62 % (40-80) 05/05/17 19:57 Lymphocytes 25 % (20-50) 05/05/17 19:57 Monocytes 9 % (2-10) 05/05/17 19:57 Eosinophils 4 % (0-5) 05/05/17 19:57 Basophils 2 % (0-3) 05/04/17 18:54 Hypochromia 1+ 05/04/17 18:54 Platelet Estimate ADEQUATE (NORMAL) 05/05/17 19:57 Polychromasia 1+ 05/05/17 19:57 Anisocytosis 2+ 05/05/17 19:57 Microcytosis 3+ 05/05/17 19:57 RBC Morph Micro Appear ABNORMAL (NORMAL) 05/05/17 19:57 PT 10.3 SECONDS (9.5-11.5) 05/07/17 06:10 INR 0.99 (0.5-1.4) 05/07/17 06:10 PTT (Actin FS) 19.6 SECONDS (26.0-38.0) L 05/07/17 06:10 Sodium 136 mEq/L (136-145) 05/07/17 06:10 Potassium 4.1 mEq/L (3.5-5.1) 05/07/17 06:10 Chloride 108 mEq/L (98-107) H 05/07/17 06:10 Carbon Dioxide 24.6 mEq/L (21.0-31.0) 05/07/17 06:10 Anion Gap 7.5 (7.0-16.0) 05/07/17 06:10 BUN 17 mg/dL (7-25) 05/07/17 06:10 Creatinine 0.6 mg/dL (0.6-1.2) 05/07/17 06:10 Est GFR ( Amer) TNP 05/07/17 06:10 Est GFR (Non-Af Amer) TNP 05/07/17 06:10 BUN/Creatinine Ratio 28.3 05/07/17 06:10 Glucose 110 mg/dL (70-105) H 05/07/17 06:10 POC Glucose 110 MG/DL (70 - 105) H 05/07/17 06:47 Whole Bld Lactic Acid 1.18 mmol/L (0.60-1.99) 05/04/17 18:54 Calcium 10.9 mg/dL (8.6-10.3) H 05/07/17 06:10 Total Bilirubin 0.5 mg/dL (0.3-1.0) 05/07/17 06:10 AST 39 U/L (13-39) 05/07/17 06:10 ALT 25 U/L (7-52) 05/07/17 06:10 Alkaline Phosphatase 164 U/L (34-104) H 05/07/17 06:10 Troponin I 0.03 ng/mL (0.01-0.05) 05/04/17 18:54 B-Natriuretic Peptide 36.5 pg/mL (5.0-100.0) 05/06/17 07:20 Total Protein 7.1 gm/dL (6.0-8.3) 05/07/17 06:10 Albumin 3.6 gm/dL (3.7-5.3) L 05/07/17 06:10 Globulin 3.5 gm/dL 05/07/17 06:10 Albumin/Globulin Ratio 1.0 (1.0-1.8) 05/07/17 06:10 Triglycerides 90 mg/dL (<150) 05/04/17 18:54 Cholesterol 95 mg/dL (<200) 05/04/17 18:54 LDL Cholesterol Direct 43 mg/dL (75-193) L 05/04/17 18:54 HDL Cholesterol 36 mg/dL (23-92) 05/04/17 18:54 TSH 7.76 uIU/ml (0.34-5.60) H 05/04/17 18:54 Urine Source CLEAN C 05/04/17 20:50 Urine Color YELLOW 05/04/17 20:50 Urine Clarity CLEAR (CLEAR) 05/04/17 20:50 Urine pH 6.0 (4.6 - 8.0) 05/04/17 20:50 Ur Specific [place] 1.020 (1.005-1.030) 05/04/17 20:50 Urine Protein TRACE mg/dL (NEGATIVE) 05/04/17 20:50 Urine Glucose (UA) NEGATIVE mg/dL (NEGATIVE) 05/04/17 20:50 Urine Ketones NEGATIVE mg/dL (NEGATIVE) 05/04/17 20:50 Urine Blood NEGATIVE (NEGATIVE) 05/04/17 20:50 Urine Nitrate NEGATIVE (NEGATIVE) 05/04/17 20:50 Urine Bilirubin NEGATIVE (NEGATIVE) 05/04/17 20:50 Urine Urobilinogen 1.0 E.U./dL (0.2 - 1.0) 05/04/17 20:50 Ur Leukocyte Esterase NEGATIVE (NEGATIVE) 05/04/17 20:50 Urine RBC NONE SEEN /hpf (0-5) 05/04/17 20:50 Urine WBC 0-2 /hpf (0-5) 05/04/17 20:50 Ur Epithelial Cells RARE /lpf (FEW) 05/04/17 20:50 Urine Bacteria OCCASIONAL /hpf (NONE SEEN) 05/04/17 20:50 Stool Occult Blood NEGATIVE (NEGATIVE) 05/07/17 05:00 RPR NONREACTIVE (NONREACTIVE) 05/04/17 18:54 Blood Type A POSITIVE 05/04/17 19:35 Antibody Screen NEGATIVE 05/04/17 19:35 - Physical Exam Vitals and I&O: Vital Signs Temp 97.6 F 05/07/17 16:00 Pulse 99 05/07/17 16:00 Resp 18 05/07/17 16:00 BP 116/77 05/07/17 16:00 Pulse Ox 99 05/07/17 16:00 Intake & Output 05/07/17 05/07/17 05/08/17 06:59 18:59 06:59 Intake Total 1999 1127.5 Balance 1999 1127.5 Weight (lbs) 75.886 kg 75.886 kg Intake: Intake, IV Amount 1117.5 D5-0.45NS 1,000 ml @ 50 1117.5 mls/hr IV .Q20H [facility] Rx#: [id number] Oral 1999 10 Other: # Voids 6 2 # Bowel Movements 3 2 Stool Characteristics Liquid Liquid Active Medications: Current Medications Ferrous Sulfate (Iron) 325 mg PO TID [facility] Stop: 07/04/17 08:59 Last Admin: 05/07/17 14:59 Dose: Not Given Folic Acid (Folate) 1 mg PO DAILY [facility] Stop: 07/04/17 08:59 Last Admin: 05/07/17 08:12 Dose: Not Given Dextrose/Sodium Chloride (D5-0.45ns) 1,000 mls @ 50 mls/hr IV .Q20H [facility] Stop: 07/03/17 23:04 Last Infusion: 05/07/17 12:41 Dose: Infused Levothyroxine Sodium (Synthroid) 0.125 mg PO QDAC [facility] Stop: 07/04/17 07:29 Last Admin: 05/07/17 06:44 Dose: 0.125 mg Magnesium Hydroxide (Milk Of Magnesia) 30 ml PO BID PRN PRN Reason: Constipation Stop: 07/05/17 16:59 Last Admin: 05/06/17 09:41 Dose: 30 ml Pantoprazole Sodium (Protonix) 40 mg PO DAILY [facility] Stop: 07/04/17 08:59 Last Admin: 05/07/17 08:12 Dose: Not Given Sucralfate (Carafate) 1 gm PO ACHS [facility] Stop: 07/04/17 07:29 Last Admin: 05/07/17 18:53 Dose: Not Given General: demented HEENT: NC/AT, PERRLA, EOMI Neck: Supple, No JVD, No thyromegaly, No LAD Lungs: CTAB Cardiovascular: Normal S1, Normal S2, without murmur Abdomen: soft, non-tender Extremities: clear Neurological: no change - Procedures Procedures: Procedures Procedure Code Date CONTROL BLEEDING IN GASTROINTESTINAL TRACT, ENDO [id number] 05/04/17 DIAGNOSTIC COLONOSCOPY 93121 05/04/17 EGD CONTROL BLEEDING ANY 14847 05/04/17 INSPECTION OF LOWER INTESTINAL TRACT, ENDO [id number] 05/04/17 Internal Medicine Assmt/Plan - Assessment Assessment: 1.ANEMIA 2.HYPOTHYROIDISM. 3.DEMENTIA. 4.DM. - Plan Plan: CONTINUE ON CURRENT MEDICATION AND DIET.
[2017-05-08 05:12] LABS: FOLIC ACID 17.1 ng/mL (>3.0)
[2017-05-08 06:17] LABS: HEMATOCRIT 34.4 % (35.0-45.0); HEMOGLOBIN 11.1 gm/dL (11.7-16.1); MEAN CELL VOLUME 74.3 fl (81-100); MEAN CORPUSCULAR HGB CONC 32.2 pg (28.0-36.0); MEAN PLATELET VOLUME 7.3 fl; PLATELET COUNT 174 Th/cmm (150-400); RED BLOOD COUNT 4.63 Mil/cmm (3.80-5.20); WHITE BLOOD COUNT 5.8 Th/cmm (4.8-10.8)
[2017-05-08 06:44] LABS: ALKALINE PHOSPHATASE 154 U/L (34-104); ANION GAP 7.1 (7.0-16.0); BILIRUBIN,TOTAL 0.7 mg/dL (0.3-1.0); BUN - UREA NITROGEN 12 mg/dL (7-25); CALCIUM SERUM 10.8 mg/dL (8.6-10.3); CARBON DIOXIDE 21.9 mEq/L (21.0-31.0); CHLORIDE 106 mEq/L (98-107); CREATININE - SERUM 0.5 mg/dL (0.6-1.2); GLUCOSE 140 mg/dL (70-105); SGOT 24 U/L (13-39); SGPT/ALT 18 U/L (7-52); SODIUM SERUM 131 mEq/L (136-145)
[2017-05-08] MEDS: Levothyroxine 0.125 Mg Tab PO SCH (06:44)
--- NOTE | 2017-05-08 08:02 | Diagnostic Imaging Report ---
Small bowel follow-through HISTORY: Anemia Barium was administered orally. There is free flow of contrast from the stomach into the duodenum. The proximal small bowel exhibits a normal caliber and mucosal pattern. There appears to be segmental narrowing involving the distal ileum. Inflammatory change cannot be excluded. Clinical correlation is needed. Normal transit time to the colon. IMPRESSION: 1. Suggestion of generalized narrowing through the region of the distal ileum without obstruction. Changes related to inflammatory bowel disease cannot be excluded. Clinical correlation is needed.
[2017-05-08] MEDS ORDERED: Pamidronate 90 MG in Sodium Chloride 0.9% 250 ML IV ONE (08:30)
[2017-05-08 08:41] LABS: BAND NEUTROPHILE 1 % (0-10); NEUTROPHILS 60 % (40-80); TOTAL CELLS COUNTED 100
[2017-05-08 08:42] LABS: ANISOCYTOSIS 2+; MICROCYTOSIS 2+; PLATELET ESTIMATE ADEQUATE (NORMAL); PLATELET MORPHOLOGY NORMAL (NORMAL)
[2017-05-08] MEDS: Pantoprazole 40 mg EC Tab PO SCH (09:21)
[2017-05-08] MEDS: Ferrous Sulfate 325 MG TAB PO SCH ×3 (09:21→20:09)
[2017-05-08] MEDS: D5-0.45NS 1,000 ML IV SCH (11:16)
--- NOTE | 2017-05-08 20:59 | Internal Medicine Prog Note ---
Internal Medicine Subjective - Subjective Service Date: 05/08/17 Patient seen and examined:: with staff Patient is:: awake, in bed, talking Patient Complaints of:: constipation Per staff patient has:: no adverse event Internal Medicine Objective - Results Result Diagrams: 05/08/17 05:50 05/08/17 05:50 Recent Labs: Laboratory Last Values WBC 5.8 Th/cmm (4.8-10.8) 05/08/17 05:50 RBC 4.63 Mil/cmm (3.80-5.20) 05/08/17 05:50 Hgb 11.1 gm/dL (11.7-16.1) L 05/08/17 05:50 Hct 34.4 % (35.0-45.0) L 05/08/17 05:50 MCV 74.3 fl (81-100) L 05/08/17 05:50 MCH 24.0 pg (27.0-31.0) L 05/08/17 05:50 MCHC Differential 32.2 pg (28.0-36.0) 05/08/17 05:50 RDW 26.0 % (11.5-20.0) H 05/08/17 05:50 Plt Count 174 Th/cmm (150-400) 05/08/17 05:50 MPV 7.3 fl 05/08/17 05:50 Neutrophils % 55.9 % (40.0-80.0) 05/06/17 07:20 Band Neutrophils % 1 % (0-10) 05/08/17 05:50 Lymphocytes % 26.0 % (20.0-50.0) 05/06/17 07:20 Monocytes % 14.6 % (2.0-10.0) H 05/06/17 07:20 Eosinophils % 3.5 % (0.0-5.0) 05/06/17 07:20 Basophils % 0.0 % (0.0-2.0) 05/06/17 07:20 Neutrophils (Manual) 60 % (40-80) 05/08/17 05:50 Lymphocytes 19 % (20-50) L 05/08/17 05:50 Monocytes 20 % (2-10) H 05/08/17 05:50 Eosinophils 4 % (0-5) 05/05/17 19:57 Basophils 2 % (0-3) 05/04/17 18:54 Hypochromia 1+ 05/04/17 18:54 Platelet Estimate ADEQUATE (NORMAL) 05/08/17 05:50 Platelet Morphology NORMAL (NORMAL) 05/08/17 05:50 Polychromasia 1+ 05/05/17 19:57 Anisocytosis 2+ 05/08/17 05:50 Microcytosis 2+ 05/08/17 05:50 RBC Morph Micro Appear ABNORMAL (NORMAL) 05/08/17 05:50 PT 10.3 SECONDS (9.5-11.5) 05/07/17 06:10 INR 0.99 (0.5-1.4) 05/07/17 06:10 PTT (Actin FS) 19.6 SECONDS (26.0-38.0) L 05/07/17 06:10 Sodium 131 mEq/L (136-145) L 05/08/17 05:50 Potassium 4.0 mEq/L (3.5-5.1) 05/08/17 05:50 Chloride 106 mEq/L (98-107) 05/08/17 05:50 Carbon Dioxide 21.9 mEq/L (21.0-31.0) 05/08/17 05:50 Anion Gap 7.1 (7.0-16.0) 05/08/17 05:50 BUN 12 mg/dL (7-25) 05/08/17 05:50 Creatinine 0.5 mg/dL (0.6-1.2) L 05/08/17 05:50 Est GFR ( Amer) TNP 05/08/17 05:50 Est GFR (Non-Af Amer) TNP 05/08/17 05:50 BUN/Creatinine Ratio 24.0 05/08/17 05:50 Glucose 140 mg/dL (70-105) H 05/08/17 05:50 POC Glucose 110 MG/DL (70 - 105) H 05/07/17 06:47 Whole Bld Lactic Acid 1.18 mmol/L (0.60-1.99) 05/04/17 18:54 Calcium 10.8 mg/dL (8.6-10.3) H 05/08/17 05:50 Iron 23 ug/dL (27-139) L 05/06/17 07:20 TIBC 403 ug/dL (250-450) 05/06/17 07:20 Iron Saturation 6 % (15-55) L 05/06/17 07:20 Unsaturated IBC 380 ug/dL (118-369) H 05/06/17 07:20 Ferritin 8 ng/mL (15-150) L 05/06/17 07:20 Total Bilirubin 0.7 mg/dL (0.3-1.0) 05/08/17 05:50 AST 24 U/L (13-39) 05/08/17 05:50 ALT 18 U/L (7-52) 05/08/17 05:50 Alkaline Phosphatase 154 U/L (34-104) H 05/08/17 05:50 Troponin I 0.03 ng/mL (0.01-0.05) 05/04/17 18:54 B-Natriuretic Peptide 36.5 pg/mL (5.0-100.0) 05/06/17 07:20 Total Protein 6.7 gm/dL (6.0-8.3) 05/08/17 05:50 Albumin 3.3 gm/dL (3.7-5.3) L 05/08/17 05:50 Globulin 3.4 gm/dL 05/08/17 05:50 Albumin/Globulin Ratio 1.0 (1.0-1.8) 05/08/17 05:50 Triglycerides 90 mg/dL (<150) 05/04/17 18:54 Cholesterol 95 mg/dL (<200) 05/04/17 18:54 LDL Cholesterol Direct 43 mg/dL (75-193) L 05/04/17 18:54 HDL Cholesterol 36 mg/dL (23-92) 05/04/17 18:54 Vitamin B12 451 pg/mL (211-946) 05/06/17 07:20 Folic Acid 17.1 ng/mL (>3.0) 05/06/17 07:20 TSH 7.76 uIU/ml (0.34-5.60) H 05/04/17 18:54 PTH Intact 44 pg/mL (15-65) 05/07/17 06:10 Urine Source CLEAN C 05/04/17 20:50 Urine Color YELLOW 05/04/17 20:50 Urine Clarity CLEAR (CLEAR) 05/04/17 20:50 Urine pH 6.0 (4.6 - 8.0) 05/04/17 20:50 Ur Specific [place] 1.020 (1.005-1.030) 05/04/17 20:50 Urine Protein TRACE mg/dL (NEGATIVE) 05/04/17 20:50 Urine Glucose (UA) NEGATIVE mg/dL (NEGATIVE) 05/04/17 20:50 Urine Ketones NEGATIVE mg/dL (NEGATIVE) 05/04/17 20:50 Urine Blood NEGATIVE (NEGATIVE) 05/04/17 20:50 Urine Nitrate NEGATIVE (NEGATIVE) 05/04/17 20:50 Urine Bilirubin NEGATIVE (NEGATIVE) 05/04/17 20:50 Urine Urobilinogen 1.0 E.U./dL (0.2 - 1.0) 05/04/17 20:50 Ur Leukocyte Esterase NEGATIVE (NEGATIVE) 05/04/17 20:50 Urine RBC NONE SEEN /hpf (0-5) 05/04/17 20:50 Urine WBC 0-2 /hpf (0-5) 05/04/17 20:50 Ur Epithelial Cells RARE /lpf (FEW) 05/04/17 20:50 Urine Bacteria OCCASIONAL /hpf (NONE SEEN) 05/04/17 20:50 Stool Occult Blood NEGATIVE (NEGATIVE) 05/07/17 05:00 RPR NONREACTIVE (NONREACTIVE) 05/04/17 18:54 Blood Type A POSITIVE 05/04/17 19:35 Antibody Screen NEGATIVE 05/04/17 19:35 - Physical Exam Vitals and I&O: Vital Signs Temp 99.5 F 05/08/17 16:00 Pulse 89 05/08/17 16:00 Resp 17 05/08/17 16:00 BP 135/65 05/08/17 16:00 Pulse Ox 96 05/08/17 16:00 Intake & Output 05/08/17 05/08/17 05/09/17 06:59 18:59 06:59 Intake Total 652.083 Balance 652.083 Weight (lbs) 75.931 kg 74.979 kg Intake: Intake, IV Amount 52.083 Oral 600 Other: # Voids 3 # Bowel Movements 0 Stool Characteristics Liquid Active Medications: Current Medications Ferrous Sulfate (Iron) 325 mg PO TID [facility] Stop: 07/04/17 08:59 Last Admin: 05/08/17 20:09 Dose: 325 mg Folic Acid (Folate) 1 mg PO DAILY [facility] Stop: 07/04/17 08:59 Last Admin: 05/08/17 09:21 Dose: 1 mg Dextrose/Sodium Chloride (D5-0.45ns) 1,000 mls @ 50 mls/hr IV .Q20H [facility] Stop: 07/03/17 23:04 Last Admin: 05/08/17 11:16 Dose: 50 mls/hr Levothyroxine Sodium (Synthroid) 0.125 mg PO QDAC [facility] Stop: 07/04/17 07:29 Last Admin: 05/08/17 06:44 Dose: 0.125 mg Magnesium Hydroxide (Milk Of Magnesia) 30 ml PO BID PRN PRN Reason: Constipation Stop: 07/05/17 16:59 Last Admin: 05/06/17 09:41 Dose: 30 ml Pantoprazole Sodium (Protonix) 40 mg PO DAILY [facility] Stop: 07/04/17 08:59 Last Admin: 05/08/17 09:21 Dose: 40 mg Sucralfate (Carafate) 1 gm PO ACHS [facility] Stop: 07/04/17 07:29 Last Admin: 05/08/17 20:09 Dose: 1 gm General: demented HEENT: NC/AT, PERRLA, EOMI Neck: Supple, No JVD, No thyromegaly, No LAD Lungs: CTAB Cardiovascular: Normal S1, Normal S2, without murmur Abdomen: soft, non-tender Extremities: clear Neurological: no change - Procedures Procedures: Procedures Procedure Code Date CONTROL BLEEDING IN GASTROINTESTINAL TRACT, ENDO [id number] 05/04/17 DIAGNOSTIC COLONOSCOPY 44368 05/04/17 EGD CONTROL BLEEDING ANY 78596 05/04/17 INSPECTION OF LOWER INTESTINAL TRACT, ENDO [id number] 05/04/17 Internal Medicine Assmt/Plan - Assessment Assessment: 1.ANEMIA 2.HYPOTHYROIDISM. 3.DEMENTIA. 4.DM. - Plan Plan: CONTINUE ON CURRENT MEDICATION AND DIET.CBC AND CMP IN AM.ENSURE TID.
--- NOTE | 2017-05-09 01:09 | Progress Notes ---
DATE: 05/08/2017 GASTROENTEROLOGY PROGRESS NOTE SUBJECTIVE: Tolerating old diet well. No abdominal pain. No visible bleeding. OBJECTIVE: VITAL SIGNS: Noted. GENERAL: The patient is well-developed, well-nourished female in no acute distress. CARDIOVASCULAR: Regular rate and rhythm. ABDOMEN: Soft, nontender, and nondistended. EXTREMITIES: No edema. RELEVANT LABORATORY DATA: Hemoglobin 11.1 and platelet count is normal. Creatinine is normal. IMPRESSION: 1. Anemia, multifactorial with esophagogastroduodenoscopy yesterday showing watermelon stomach change and duodenal angiodysplasia, status post electrocautery. Colonoscopy yesterday showed hemorrhoids and fair bowel preparation. The patient's small bowel series shows some nonspecific terminal ilial narrowing. MRCP was negative. 2. Recurrent iron deficiency anemia, likely from watermelon stomach change and/or small bowel angiodysplasia status post electrocautery of both. 3. Dementia. 4. Leukopenia. 5. Gastroesophageal reflux disease. RECOMMENDATIONS: 1. Consider repeat upper endoscopy in 4-6 weeks' time to retreat the watermelon stomach change. 2. Consider outpatient capsule endoscopy to evaluate for other small bowel lesions and arteriovenous malformations. 3. Supportive care. JOB# [id number] JADEN
[2017-05-09] MEDS: D5-0.45NS 1,000 ML IV SCH (06:48)
[2017-05-09] MEDS: Levothyroxine 0.125 Mg Tab PO SCH (06:49)
[2017-05-09 07:36] LABS: HEMATOCRIT 31.4 % (35.0-45.0); HEMOGLOBIN 10.1 gm/dL (11.7-16.1); MEAN CELL VOLUME 74.2 fl (81-100); MEAN CORPUSCULAR HGB CONC 32.3 pg (28.0-36.0); MEAN PLATELET VOLUME 7.2 fl; NEUTROPHILE ABSOLUTE 2.8 Th/cmm (1.8-8.0); PLATELET COUNT 166 Th/cmm (150-400); RED BLOOD COUNT 4.23 Mil/cmm (3.80-5.20); RED CELL DISTRIBUTION WIDTH 26.8 % (11.5-20.0); WHITE BLOOD COUNT 4.8 Th/cmm (4.8-10.8)
[2017-05-09 07:55] LABS: ALB/GLOB RATIO 0.9 (1.0-1.8); ALKALINE PHOSPHATASE 198 U/L (34-104); ANION GAP 6.6 (7.0-16.0); BILIRUBIN,TOTAL 0.7 mg/dL (0.3-1.0); BUN - UREA NITROGEN 11 mg/dL (7-25); CALCIUM SERUM 10.3 mg/dL (8.6-10.3); CARBON DIOXIDE 24.9 mEq/L (21.0-31.0); CHLORIDE 106 mEq/L (98-107); CREATININE - SERUM 0.5 mg/dL (0.6-1.2); GLUCOSE 144 mg/dL (70-105); POTASSIUM SERUM 3.5 mEq/L (3.5-5.1); SGOT 60 U/L (13-39); SGPT/ALT 62 U/L (7-52); SODIUM SERUM 134 mEq/L (136-145)
[2017-05-09] MEDS: Ferrous Sulfate 325 MG TAB PO SCH ×2 (09:35→13:29)
[2017-05-09] MEDS: Pantoprazole 40 mg EC Tab PO SCH (09:35)
== END 2017-05-09 18:40 | disposition home or self-care (01) | DRG 378 ==
LOC: ER 18:16 → TELE 22:20
PROVIDERS: ADMIT Family Medicine; ATTEND Family Medicine
PROC: 0W3P8ZZ Control Bleeding in Gastrointestinal Tract, Via Natural or Artificial Opening Endoscopic (ICD-10-PCS; principal; 2017-05-07)
PROC: 0DJD8ZZ Inspection of Lower Intestinal Tract, Via Natural or Artificial Opening Endoscopic (ICD-10-PCS; 2017-05-07)
DX: K31.811 Angiodysplasia of stomach and duodenum with bleeding (principal); E44.1 Mild protein-calorie malnutrition; E11.22 Type 2 diabetes mellitus with diabetic chronic kidney disease; F03.90 Unspecified dementia, unspecified severity, without behavioral disturbance, psychotic disturbance, mood disturbance, and anxiety; E87.1 Hypo-osmolality and hyponatremia; D50.9 Iron deficiency anemia, unspecified; K64.8 Other hemorrhoids; F29 Unspecified psychosis not due to a substance or known physiological condition; E03.9 Hypothyroidism, unspecified; K21.9 Gastro-esophageal reflux disease without esophagitis; I12.9 Hypertensive chronic kidney disease with stage 1 through stage 4 chronic kidney disease, or unspecified chronic kidney disease; N18.9 Chronic kidney disease, unspecified; J44.9 Chronic obstructive pulmonary disease, unspecified; I25.10 Atherosclerotic heart disease of native coronary artery without angina pectoris; F41.9 Anxiety disorder, unspecified; E78.5 Hyperlipidemia, unspecified; D72.819 Decreased white blood cell count, unspecified; Z68.26 Body mass index [BMI] 26.0-26.9, adult
CPT/HCPCS: 36415-UA; 71010-TC; 74250-TC; 80053-TC; 80061-TC; 81001-TC; 82270-TC; 82607-90; 82652-90; 82728-90; 82746-90; 82948-90; 83519-90; 83540-90; 83550-90; 83605; 83880-TC; 83970-90; 84443-TC; 84484-TC; 85007-TC; 85025-TC; 85027-TC; 85610-TC; 85730-TC; 86592-TC; 86850-TC; 86900-TC; 86901-TC; 86922-TC; 93005; 94760; J1940; J2430; J7030; P9016; Z7610